=== PATIENT | male | born 1955 | race African-American/Black ===

== ENCOUNTER 2020-03-01 05:39 | Inpatient (IN) | payer OTHER, MEDICAID ==
[~2020-03-01] VITALS: Ht 172.7 cm; Wt 88.7 kg
[2020-03-01] VITALS (7 sets, daily range): BP systolic 113–186; BP diastolic 45–88
--- NOTE | ~2020-03-01 | HEMODYNAMI ---
PATIENT:JEFFREY PERALES MEDICAL RECORD: [id number] : 55 [facility]# [id number] ADMISSION DATE: 03/01/20 Generatedon:03/01/20208:43 Patient name: JEFFREY PERALES Patient #: [id number] SSN: DO B: 1955 Date of study: 03/01/2020 Page: Of Hemodynamic Procedure Report Patient Data Patient Demographics Procedure consent was obtained First Name: JEFFREY Gender: Male Last Name: ANGELLA : 1955 Patient #: [id number] Age: 65 year(s) Race: Black Additional ID: [id number] Contact details Address: [address] [place] [address] [address] State: [place] City: [facility] Zip code: [address] Past Medical History Allergies Allergen Reaction Date Comments Reported Other allergy 03/01/2020 LISINOPRIL Admission Admission Data Admission Date: 03/01/2020 Admission Time: 7:59 Room #: Andrew[facility]15 Lab Results Lab Result Date: 03/01/2020 Lab Result Time: 0:00 Biochemistry Name Units Result Min Max BUN mg/dl 24 --(----)-* 7 18 Creatinine mg/dl 2 --(----)-* 0.6 1.3 eGFR ml/min 36 *-(----)-- 90 120 NONAFRICAN CBC Name Units Result Min Max Hematocrit % 42.9 --(*---)-- 42 54 Hemoglobin g/dl 14.8 --(-*--)-- 13.5 17.5 Procedure Procedure Types Cath Procedure Diagnostic Procedure C [facility] w/Coronaries PCI Procedure Coronary Stent Coronary Stent Initial Hemochron ACT Test Procedure Description Procedure Date Procedure Date: 03/01/2020 Procedure Start Time: 8:14 Procedure End Time: 8:42 Procedure Staff Name Function Beto Vázquez MD Performing Physician Milagro Flores RT Monitor Ailyn Sims RT Scrub Kory Lorigan RN Nurse Procedure Data Cath Procedure Fluoroscopy Diagnostic fluoroscopy Total fluoroscopy Time: 3.5 time: 3.5 min min Diagnostic fluoroscopy Total fluoroscopy dose: 812 dose: 812 mGy mGy Contrast Material Contrast Material Type Amount (ml) Isovue 300 107 Entry Location Entry Primary Successful Side Size Upsize Upsize Entry Closure Succes sful Closure Location (Fr) 1 (Fr) 2 (Fr) Remarks Device Remarks Femoral Right 6 Fr Exoseal artery Short Estimated blood loss: 10 ml Diagnostic catheters Device Type Used For End Catheter Placement MULTIPACK JL 4.0 5Fr Procedure catheter MULTIPACK 3DRC 5Fr Procedure catheter MULTIPACK Pigtail 5 Fr Procedure catheter Procedure Complications No complications Procedure Medications Medication Administration Route Dosage 0.9% NaCl I.V. 100 ml/hr Oxygen NC 2 l/min Heparin Flush Bag added to field 2 bags (1000units/500ml NS) Lidocaine 2% added to field 20 Heparin Bolus I.V. 5000 units Integrilin (Bolus I.V. 7.9 ml 2mg/ml) Integrilin (Bolus wasted 2.1 ml 2mg/ml) Plavix P.O. 600 mg Hemodynamics Rest HGB: 14.8 (g/dl) Heart Rate: 55 (bpm) Pressure Samples Time Site Value (mmHg) Purpose Heart Use Rate(bpm) 8:20 LV 176/16,14 Snapshot 57 8:21 AO 160/72(110) Pullback 53 Gradients Valve Time Site Site 2 Mean SEP/DFP Peak To Heart Use 1 (mmHg) (sec/min) Peak Rate (mmHg) (bpm) Aortic 8:21 LV AO 53 160/72(110) Snapshots Pre Cath Intra NCS Post Cath Vital Signs Time Heart Resp SPO2 etCO2 NIBP (mmHg) Rhythm Pain Sedation Rate (ipm) (%) (mmHg) Status Level (bpm) 8:09:49 66 9 100 0 154/81(124) NSR 0 (11) 10(A) , No pain 8:14:12 48 10 100 0 159/90(129) NSR 0 (11) 10(A) , No pain 8:18:38 61 12 100 0 158/85(130) NSR 0 (11) 10(A) , No pain 8:23:00 52 9 100 0 155/84(130) NSR 0 (11) 10(A) , No pain 8:27:26 54 14 100 0 158/82(140) NSR 0 (11) 10(A) , No pain 8:31:55 58 12 100 0 167/78(133) NSR 0 (11) 10(A) , No pain 8:36:19 57 8 100 0 171/91(119) NSR 0 (11) 10(A) , No pain 8:40:43 55 8 100 0 166/88(124) NSR 0 (11) 10(A) , No pain Medications Time Medication Route Dose Verified Delivered Reason Notes Effectiveness by by 8:10:25 0.9% NaCl I.V. 100 Kory Kory Per physician ml/hr Danilo Carrasco RN RN 8:10:37 Oxygen NC 2 Kory Kory for low 02 sats l/min Danilo Carrasco RN RN 8:10:56 Heparin Flush added 2 Kory Kory used for Bag to bags Danilo Carrasco procedure (1000units/500ml RN RN NS) 8:11:08 Lidocaine 2% added 20ml Kory Kory for local to vial Danilo Carrasco anesthetic RN RN 8:22:52 Heparin Bolus I.V. 5000 Kory Kory for units Danilo Carrasco anticoagulation RN RN 8:23:09 Integrilin I.V. 7.9 Kory Kory for (Bolus 2mg/ml) ml Danilo Carrasco antiplatelet RN RN therapy 8:23:20 Integrilin wasted 2.1 Kory Kory to sharp's (Bolus 2mg/ml) ml Danilo Carrasco RN RN 8:38:26 Plavix P.O. 600 Kory Kory for mg Danilo Carrasco antiplatelet RN RN therapy Procedure Log Time Note 7:51:39 Informed consent obtained and on chart 7:52:26 Procedure Status Urgent Heart Cath (IP). 7:52:27 Time tracking: Regular hours (M-F 7:00 - 5:00) 7:52:30 Plan of Care:Hemodynamics will remain stable., Cardiac rhythm will remain stable., Comfort level will be maintained., Respiratory function will remain adequate., Patient/ family verbilizes understanding of procedure., Procedure tolerated without complication., Recovers from procedure without complications.. 7:52:34 Ailyn LAN(R) (CV) sent for patient. Start room use. 7:52:56 H&P Date Dictated: 03/01/2020 ER History on chart.. 7:58:52 Patient allergic to Other allergyLISINOPRIL 8:00:52 Lab Result : eGFR NONAFRICAN 36 ml/min 8:00:52 Lab Result : Hemoglobin 14.8 g/dl 8:00:52 Lab Result : BUN 24 mg/dl 8:00:52 Lab Result : Creatinine 2 mg/dl 8:00:52 Lab Result : Hematocrit 42.9 % 8:01:44 Patient received from ED to CCL 1 Alert and oriented. Tansferred to table in Supine position. 8:01:45 Warm blankets applied, and wallace hugger turned on for patient comfort. 8:01:45 Correct patient and procedure confirmed by team. 8:08:32 ECG and BP/O2 sat monitors applied to patient. 8:08:33 Baseline sample Acquired. 8:08:33 Vital chart was started 8:08:39 Rhythm: sinus bradycardia 8:08:42 Pre-procedure instructions explained to patient. 8:08:42 Pre-op teaching completed and patient verbalized understanding. 8:08:44 Family unavailable. 8:08:45 Is the patient allergic to Iodine/contrast media? No. 8:08:47 Is patient on blood thinner?No 8:08:49 Patient diabetic? No. 8:08:51 Previous problem with sedation/anesthesia? No ? 8:08:53 Snore? Yes 8:08:58 Sleep apnea? No 8:08:58 Deviated septum? No 8:08:59 Opens mouth fully? Yes 8:08:59 Sticks out tongue? Yes 8:09:01 Airway obstruction? No ? 8:09:02 Dentures? No ? 8:09:05 Pre procedure: right dorsailis pedis pulse 2+ Normal; easily identifiable; not easily obliterated 8:09:52 IV patent on arrival in right antecubital with 0.9% NaCl at O. 8:09:54 Lab results completed and on chart. 8:09:57 Right groin area was prepped with chlora-prep and draped in sterile fashion 8:09:58 Alarms reviewed by RJulia N. 8:09:58 Sharps counted by scrub and verified by R.NJulia 8:10:01 --------ALL STOP TIME OUT------ 8:10:02 Final Timeout: patient, procedure, and site verified with staff and physician. All members of the team are in agreement. 8:10:04 Right groin site verified by team. 8:10:07 Fire Safety Assessment: A--An alcohol-based skin anteseptic being used preoperatively., C--Open oxygen or nitrous oxide is being used., D--An ESU, laser, or fiber-optic light is being used. 8:10:10 Physical assessment completed. ASA score P 2 - A patient with mild systemic disease as per Beto Vázquez MD. 8:10:18 3b) 30-44 Moderately reduced kidney function. 8:10:20 Maximum allowable contrast dose (3.7 X eGFR X 0.75)100 ml. 8:10:22 Sedation plan: IV Moderate Sedation Medication:Versed, Fentanyl 8:10:25 0.9% NaCl 100 ml/hr I.V. was administered by Kory Carrasco RN; Per physician; Verbal order read back and verified. 8:10:37 Oxygen 2 l/min NC was administered by Kory Carrasco RN; for low 02 sats; Verbal order read back and verified. 8:10:56 Heparin Flush Bag (1000units/500ml NS) 2 bags added to field was administered by Kory Carrasco RN; used for procedure; Verbal order read back and verified. 8:11:00 Use device set Femoral Dx 8:11:01 ACIST Syringe (81887) opened to sterile field. 8:11:01 Bag Decanter (2001S) opened to sterile field. 8:11:02 ACIST Hand Control (68196) opened to sterile field. 8:11:03 ACIST Manifold (31945) opened to sterile field. 8:11:04 Tegaderm 4 x 4 (1626W) opened to sterile field. 8:11:07 Medline Cath Pack ([id number]) opened to sterile field. 8:11:08 Lidocaine 2% 20ml vial added to field was administered by Kory Carrasco RN; for local anesthetic; Verbal order read back and verified. 8:11:08 DIAGNOSTIC Multipack 5Fr catheter set (DI9135) opened to sterile field. 8:11:10 EMERALD Guide Wire (684-523) opened to sterile field. 8:11:15 SHEATH 6FR [place] (GAA240) opened to sterile field. 8:14:23 Procedure started. 8:14:23 Full Disclosure recording started 8:14:33 Local anesthetic to right femoral artery with Lidocaine 2% by Beto Vázquez MD.INITIAL ACCESS ONLY 8:15:36 A 6 Fr Short sheath was inserted into the Right Femoral artery 8:15:39 Zero performed for pressure channel P1 8:16:08 A MULTIPACK JL 4.0 5Fr catheter was advanced over the wire and used for Procedure. 8:17:59 LCA angiography performed. 8:18:00 Catheter removed. 8:18:05 A MULTIPACK 3DRC 5Fr catheter was advanced over the wire and used for Procedure. 8:18:58 RCA angiography performed. 8:19:00 Catheter removed. 8:19:02 ACCDominant side:Right 8:19:44 A MULTIPACK Pigtail 5 Fr catheter was advanced over the wire and used for Procedure. 8:20:06 LV gram done using NATHAN 8:20:09 Injector settings: Ml/sec: 10, Volume: 20, 8:20:43 LV hemodynamics recorded. 8:20:56 EF : 55 % 8:20:59 Proceeding to intervention. 8:21:53 Pre PCI Site: [place] LAD has 80% stenosis. 8:22:04 GUIDE 6FR XBLAD 3.5 catheter ([id number]) opened to sterile field. 8:22:08 WHISPER 300cm guide wire ([id number]) opened to sterile field. 8:22:13 INFLATOR Merit BasixCompak (ZU0078) opened to sterile field. 8:22:26 6 Fr XBLAD 3.5 guide catheter was inserted over the wire 8:22:52 Heparin Bolus 5000 units I.V. was administered by Kory Carrasco RN; for anticoagulation; Verbal order read back and verified. 8:22:55 ACC Pre-intervention JAKE Flow is 3. 8:23:09 Integrilin (Bolus 2mg/ml) 7.9 ml I.V. was administered by Kory Carrasco RN; for antiplatelet therapy; Verbal order read back and verified. 8:23:20 Integrilin (Bolus 2mg/ml) 2.1 ml wasted was administered by Kory Carrasco RN; to sharp's; Verbal order read back and verified. 8:23:35 WHISPER 300 wire advanced. 8:24:52 Wire advanced across lesion. 8:28:02 Place stent Inflation Number: 1 A INTEGRITY RX 3.0 x 15 stent ([id number]) was prepped and advanced across the Mid LAD . The stent was deployed at 12 KERRY for 0:00 (min:sec) . 8:28:41 Inflation number: 2 The stent balloon was then re-inflated across the Mid LAD to 10 KERRY for 0:00 (min:sec) . 8:29:18 Stent catheter was removed intact over wire. 8:32:13 Place stent Inflation Number: 3 A INTEGRITY RX 3.0 x 09 stent ([id number]) was prepped and advanced across the Mid LAD . The stent was deployed at 12 KERRY for 0:00 (min:sec) . 8:32:39 Stent catheter was removed intact over wire. 8:32:49 Wire removed. 8:32:49 Guide catheter removed. 8:32:59 EXOSEAL 6Fr (EX600) opened to sterile field. 8:33:22 Sheath removed intact; hemostasis achieved with Exoseal to the Right Femoral artery. 8:33:30 Procedure ended.(Physican Out) 8:37:46 Fluoroscopy time 03.50 minutes. 8:37:51 Flurop Dose total: 812 8:37:51 Fluoroscopy dose: 812 mGy 8:37:58 Dose Area Product 46386 mGy/cm. 8:38:08 Contrast amount:Isovue 300 107ml. 8:38:11 Maximum allowable dose exceeded? Yes. 8:38:12 Sharps counted by scrub and verified by R.N. 8:38:15 Post-op/insertion site Right Femoral artery dressed using a 4 x 4 and Tegaderm. 8:38:18 Post-procedure physical assessment completed. ASA score P 2 - A patient with mild systemic disease as per Beto Vázquez MD. 8:38:21 Post procedure rhythm: sinus bradycardia 8:38:23 Estimated blood loss: 10 ml 8:38:26 Plavix 600 mg P.O. was administered by Kory Carrasco RN; for antiplatelet therapy; Verbal order read back and verified. 8:38:47 Post procedure instruction explained to patient.Patient verbalizes understanding. 8:38:48 ACT drawn and resulted at 275 seconds. (normal therapeutic range 180-240 seconds). 8:38:48 Patient needs reinforcement of post procedure teaching. 8:41:06 Procedure type changed to Cath procedure, Diagnostic procedure, LHC, LHC w/Coronaries, PCI procedure, Coronary Stent, Coronary Stent Initial, Hemochron ACT Test 8:41:36 Procedure and supply charges have been captured, reviewed, submitted and are correct. 8:41:40 Procedure Complication : No complications 8:41:44 [facility] Findings: MVD- PCI performed (see procedure note) 8:41:47 Operative report dictated upon procedure completion. 8:41:49 See physician's report for complete and final results. 8:41:51 Report given to ED. 8:41:53 Patient transfered to ED with Bed. 8:42:41 Vital chart was stopped 8:42:44 Procedure ended. 8:42:44 Full Disclosure recording stopped 8:42:50 ACC-PCI Only Patient was given prescriptions, or instructed by Beto Vázquez MD to start/continue the following medications upon discharge: Plavix 8:42:51 End room use (Document Last) 8:43:12 End room use (Document Last) Intervention Summary Intervention Notes Time ActionType Lesion and Equipment Action# Pressure Duration Attributes Used 8:28:02 Place stent Mid LAD INTEGRITY RX 1 12 00:00 3.0 x 15 stent ([id number]) 8:28:41 Reinflate Mid LAD INTEGRITY RX 2 10 00:00 stent 3.0 x 15 balloon stent ([id number]) 8:32:13 Place stent Mid LAD INTEGRITY RX 3 12 00:00 3.0 x 09 stent ([id number]) Device Usage Item Name Manufacture Quantity Catalog Hospital Part Current Minimal Lot# / Number Charge Number Stock Stock Serial# Code ACIST Acist 1 97945 473933 636013 507614 20 Syringe Medical (34849) Systems Inc Bag Decanter Microtek 1 2001S 780295 91554 450190 5 () Medical Inc. ACIST Hand Acist 1 88092 531104 048649 508040 5 Control Medical (54280) Systems Inc ACIST Acist 1 80583 449399 737435 664380 5 Manifold Medical (94161) Systems Inc Tegaderm 4 x 3M 1 1626W 524302 568375 851090 5 4 (1626W) Medline Cath Medline 1 [id number] 933827 76947 338141 5 Pack ([id number]) DIAGNOSTIC Cardinal 1 GO5598 101168 34380 167779 30 Multipack Health 5Fr catheter set (IT1271) EMERALD Cardinal 1 502-455 882599 844245 486214 5 Guide Wire Health (502-455) SHEATH 6FR Terumo 1 DPH752 890894 569931 341059 40 [place] (MBK538) MULTIPACK JL Cardinal 1 241187 5 4.0 5Fr Health catheter MULTIPACK Cardinal 1 297042 5 3DRC 5Fr Health catheter MULTIPACK Cardinal 1 011625 5 Pigtail 5 Fr Health catheter GUIDE 6FR Cardinal 1 [id number] 857233 005925 108843 10 XBLAD 3.5 Health catheter ([id number]) WHISPER Jeong 1 [id number] 214158 461725 387495 5 300cm guide Vascular wire (4260895GZ) INFLATOR Merit 1 JC3490 614313 443858 275789 15 Merit Health [place] Medical BasixCompak (NL6704) INTEGRITY RX Medtronic 1 [id number] 970076 641310 201448 5 [id number] 3.0 x 15 stent ([id number]) INTEGRITY RX Medtronic 1 [id number] 962163 497674 777082 5 [id number] 3.0 x 09 stent ([id number]) EXOSEAL 6Fr Cardinal 1 EX600 612452 865986 735447 10 (EX600) Health Signature Audit [place] Stage Time Signature Unsigned Intra-Procedure 03/01/2020 Kory 8:43:12 AM Danilo CANTRELL Intra-Procedure 03/01/2020 eBto Francois 8:43:35 AM Gregory [facility] [address] [place] [address]
[2020-03-01] MEDS ORDERED: GABAPENTIN300 MG PO (05:51)
[2020-03-01] MEDS ORDERED: FUROSEMIDE40 MG PO (05:51)
[2020-03-01] MEDS ORDERED: METHOCARBAMOL750 MG PO (05:51)
[2020-03-01] MEDS ORDERED: IBUPROFEN800 MG PO (05:52)
[2020-03-01] MEDS ORDERED: LOSARTAN-HCTZ1 EAC1 PO (05:52)
[2020-03-01] MEDS ORDERED: K-TAB10 MEQ PO (05:53)
[2020-03-01] MEDS ORDERED: MOBIC7.5 MG PO (05:53)
[2020-03-01] MEDS ORDERED: CATAPRES0.2 MG PO (05:53)
[2020-03-01 06:27] LABS: APTT 29.6 SECONDS (22.8-39.4); INR 0.91 (0.85-1.17); PROTIME 12.2 SECONDS (11.6-15.0)
[2020-03-01 06:35] LABS: BASOPHILS 0.1 % (0-2); CALC OSMOLALITY 281 mosm/kg (275-300); CALCIUM 9.3 mg/dL (8.5-10.1); CARBON DIOXIDE 26.6 mmol/L (21.0-32.0); CHLORIDE - SERUM 104 mmol/L (98-107); EOSINOPHILS 1.1 % (0-7); GLUCOSE 142 mg/dL (74-106); HEMATOCRIT 42.9 % (42.0-54.0); HEMOGLOBIN 14.8 g/dL (13.5-17.5); IMMATURE GRANULOCYTES 0.2 % (0-5); LYMPHOCYTES 17.4 % (15-50); MCH 33.7 pg (26.0-34.0); MCHC 34.5 g/dL (31.0-37.0); MCV 97.7 fL (80.0-100.0); MEAN PLATELET VOLUME 10.4 fL (7.4-10.4); MONOCYTES 4.7 % (2-11); NEUTROPHILS 76.5 % (40-80); PLATELET COUNT 272 10x3/uL (130-400); POTASSIUM - SERUM 3.6 mmol/L (3.5-5.1); RBC 4.39 10x6/uL (4.20-6.10); RDW 13.5 % (11.5-14.5); SODIUM 138 mmol/L (136-145); UREA NITROGEN 24 mg/dL (7-18); WBC 14.6 10x3/uL (4.8-10.8); eGFR NON AFRICAN AMERICAN 36 mL/min (90-120)
[2020-03-01 06:51] LABS: ALBUMIN 3.2 g/dL (3.4-5.0); ALKALINE PHOSPHATASE 51 U/L (30-120); ALT (SGPT) 17 U/L (10-68); BILIRUBIN - TOTAL 0.21 mg/dL (0.2-1.3); CKMB 2.3 U/L (0.0-3.6); CREATINE KINASE 236 UL (21-232); MAGNESIUM - SERUM 2.2 mg/dL (1.8-2.4); PROTEIN - SERUM 6.7 g/dL (6.4-8.2); THYROID STIMULATING HORMONE 0.65 uIU/mL (0.36-3.74); TROPONIN-I < 0.017 ng/mL (0.000-0.060)
--- NOTE | 2020-03-01 07:00 | NUR ---
PT REPORT FROM TAMIA LOO. PT CARE TAKEN OVER AT THIS TIME
--- NOTE | 2020-03-01 07:04 | NUR ---
CALLED FOR [facility] TO BE PAGED
--- NOTE | 2020-03-01 07:10 | NUR ---
PT'S CLOTHES REMOVED FOR CATHLAB PREP, IV STARTED TO RIGHT F/A 18 GA X 1 ATTEMPT
--- NOTE | 2020-03-01 07:20 | NUR ---
CATHLAB AND BLOOD CONSENTS SIGNED
--- NOTE | 2020-03-01 08:00 | NUR ---
PT TAKEN TO [facility]
--- NOTE | 2020-03-01 08:13 | NUR ---
STROKE BAND NUMBER [id number]
--- NOTE | 2020-03-01 09:00 | NUR ---
PT VERY LETHARGIC, WILL AWAKE TO MODERATE STIMULATION. VSS
--- NOTE | 2020-03-01 09:00 | NUR ---
PT BACK FROM CATHLAB, PULSES NOTED 2+ ON LEFT FOOT, DRESCREASED ON RIGHT, WEAK DOPPLER PULSES NOTED DP, PT. DR. OSORIO
--- NOTE | 2020-03-01 09:29 | NUR ---
DR. PINON NOTIFED ABOUT PULSE TO RIGHT FOOT, ADVISED TO MONITOR AND LONG THE PULSE WAS PRESENT ON DOPPLER AND THE SITE WAS GOOD THEN JUST MONITOR
--- NOTE | 2020-03-01 10:30 | NUR ---
DR. FLORES HERE TO SEE PT
--- NOTE | 2020-03-01 11:20 | NUR ---
DR PINON HERE AT BEDSIDE
[2020-03-01 11:31] LABS: CHOL - HDL RATIO 2.9 ratio (2.3-4.9); LDL-HDL RATIO 1.6 ratio (1.5-3.5)
[2020-03-01 17:41] LABS: CREATINE KINASE 181 UL (21-232); TROPONIN-I 0.054 ng/mL (0.000-0.060)
[2020-03-01 17:43] LABS: CKMB 1.5 U/L (0.0-3.6)
[2020-03-02] VITALS (11 sets, daily range): BP systolic 111–160; BP diastolic 38–83; BMI 28.9
[2020-03-02 00:11] LABS: CKMB 1.8 U/L (0.0-3.6); CREATINE KINASE 143 UL (21-232)
[2020-03-02 00:42] LABS: TROPONIN-I 0.319 ng/mL (0.000-0.060)
--- NOTE | 2020-03-02 01:00 | NUR ---
DR PINON INFORMED OF PT TROP. NO NEW ORDERS.
--- NOTE | 2020-03-02 06:00 | NUR ---
PT DENIES COMPLAINTS. PT RESTING IN STRECHER WATCHING TV. WILL CONT TO MONITOR
--- NOTE | 2020-03-02 07:08 | NUR ---
PT CARE ASSUMED AT THIS TIME, PT IS RESTING QUIETLY IN BED, RESPIRATIONS EVEN AND UNLABORED, BILATERAL RISE AND FALL OF CHEST NOTED, VSS ON THE MONITOR, CALL LIGHT IS IN REACH OF PATIENT,
[2020-03-02 08:31] LABS: BASOPHILS 0.1 % (0-2); EOSINOPHILS 0.3 % (0-7); HEMATOCRIT 44.5 % (42.0-54.0); HEMOGLOBIN 15.2 g/dL (13.5-17.5); IMMATURE GRANULOCYTES 0.3 % (0-5); LYMPHOCYTES 19.9 % (15-50); MCH 33.9 pg (26.0-34.0); MCHC 34.2 g/dL (31.0-37.0); MCV 99.1 fL (80.0-100.0); MEAN PLATELET VOLUME 10.2 fL (7.4-10.4); MONOCYTES 5.7 % (2-11); NEUTROPHILS 73.7 % (40-80); PLATELET COUNT 229 10x3/uL (130-400); RBC 4.49 10x6/uL (4.20-6.10); RDW 13.6 % (11.5-14.5)
[2020-03-02 08:48] LABS: ANION GAP 10.2 mmol/L (8-16); BILIRUBIN - TOTAL 0.49 mg/dL (0.2-1.3); CALCIUM 8.5 mg/dL (8.5-10.1); CARBON DIOXIDE 24.6 mmol/L (21.0-32.0); CREATININE - SERUM 1.4 mg/dL (0.6-1.3); POTASSIUM - SERUM 3.8 mmol/L (3.5-5.1); PROTEIN - SERUM 6.8 g/dL (6.4-8.2)
--- NOTE | 2020-03-02 09:00 | NUR ---
SPEECH THERAPY IN ROOM AT THIS TIME, PT OK FOR MEDS AND FOOD, NEEDS MECHANICAL SOFT DIET DUE TO NOT HAVING DENTURES IN THE HOSPITAL. TRAY ORDERED FOR PATIENT. DENIES OTHER NEEDS, VSS.
--- NOTE | 2020-03-02 11:00 | NUR ---
PT RESTING ON ER STRETCHER WITH EYES CLOSED, RESPIRATIONS EVEN AND UNLABORED, BILATERAL RISE AND FALL OF CHEST NOTED, BED LOW AND LOCKED, CALL LIGHT WITHIN REACH, VSS ON THE MONITOR.
--- NOTE | 2020-03-02 12:00 | NUR ---
PT PROVIDED WITH LUNCH TRAY, DENIES OTHER NEEDS AT THIS TIME, VSS ON THE MONITOR, BED LOW AND LOCKED, CALL LIGHT IN REACH.
--- NOTE | 2020-03-02 13:30 | NUR ---
PT RESTING ON ER STRETCHER, AWAKENS TO VOICE, DENIES NEEDS AT THIS TIME, NAD NOTED.
--- NOTE | 2020-03-02 15:00 | NUR ---
PT IS RESTING ON ER STRETCHER, S/O AT BEDSIDE, NAD NOTED, VSS, CALL LIGHT IN REACH.
--- NOTE | 2020-03-02 16:55 | NUR ---
PT NOTED TO BE BRADYCARDIC, ATTENDING PROVIDER NOTIFIED.
[2020-03-02 17:38] LABS: BILIRUBIN NEGATIVE (NEGATIVE); KETONE NEGATIVE (NEGATIVE); NITRITE NEGATIVE (NEGATIVE); UROBILINOGEN NORMAL mg/dL (< 2)
[2020-03-02 17:47] LABS: UDS - AMPHET NEGATIVE QUAL (NEGATIVE); UDS - BARB NEGATIVE QUAL (NEGATIVE); UDS - BENZO NEGATIVE QUAL (NEGATIVE); UDS - COCAINE POSITIVE QUAL (NEGATIVE); UDS - OPIATE POSITIVE QUAL (NEGATIVE); UDS - PCP NEGATIVE QUAL (NEGATIVE); UDS - THC NEGATIVE QUAL (NEGATIVE)
[2020-03-03] VITALS (7 sets, daily range): BP systolic 107–134; BP diastolic 55–71; Ht 172.7 cm; Wt 88.7 kg
[2020-03-03 06:46] LABS: BASOPHILS 0.2 % (0-2); EOSINOPHILS 0.6 % (0-7); HEMATOCRIT 39.7 % (42.0-54.0); HEMOGLOBIN 13.4 g/dL (13.5-17.5); IMMATURE GRANULOCYTES 0.2 % (0-5); LYMPHOCYTES 16.5 % (15-50); MCH 33.3 pg (26.0-34.0); MCHC 33.8 g/dL (31.0-37.0); MCV 98.5 fL (80.0-100.0); MEAN PLATELET VOLUME 10.5 fL (7.4-10.4); MONOCYTES 6.9 % (2-11); NEUTROPHILS 75.6 % (40-80); PLATELET COUNT 245 10x3/uL (130-400); RBC 4.03 10x6/uL (4.20-6.10); RDW 13.4 % (11.5-14.5); WBC 12.8 10x3/uL (4.8-10.8)
[2020-03-03 07:07] LABS: ALBUMIN 2.7 g/dL (3.4-5.0); ANION GAP 10.6 mmol/L (8-16); BILIRUBIN - TOTAL 0.28 mg/dL (0.2-1.3); CALCIUM 8.6 mg/dL (8.5-10.1); CREATININE - SERUM 1.3 mg/dL (0.6-1.3); POTASSIUM - SERUM 3.6 mmol/L (3.5-5.1); PROTEIN - SERUM 6.1 g/dL (6.4-8.2)
--- NOTE | 2020-03-03 08:59 | OP ---
PATIENT NAME: JEFFREY PERALES MEDICAL RECORD: [id number] :55 LOCATION:[facility] ADMISSION DATE:03/01/20 SURGEON: YULIANA PINON MD DATE OF OPERATION: 03/01/2020 PROCEDURE: Left heart catheterization, selective coronary angiography, right femoral artery approach. CATHETERS: A 5-Azerbaijani sheath, 5/4 left and right Joy, 5/4 pig. The procedure was well tolerated. The patient returned to the malik. Sheath removed. ExoSeal device placed. FINDINGS: Left ventriculography in 30-degree NATHAN view: Normal wall motion, normal EF 30%. CORONARY ANATOMY: LEFT MAIN: Left main is free of disease. LAD: Has an 80% stenosis, correlating nicely with EKG changes, it is quite hazy. Questionable area of either spontaneous thrombosis or vasospasm with underlying cocaine use. CIRCUMFLEX: Small vessel, free of disease. RIGHT CORONARY ARTERY: Dominant and free of disease. IMPRESSION: Obviously infarct artery LAD. PLAN: Intervention momentarily. DESCRIPTION OF PROCEDURE: Using indwelling 6-Azerbaijani sheath, XB LAD guiding catheter provided good catheter support followed by a 300 cm Whisper wire was placed across the 80% stenosis LAD down this portion of vessel. Stents deployed were a 3.0 x 15 and 3.0 x 9, both Integrity nondrug-eluting stent up to 14 atmospheres. Final angiography shows excellent resolution of 80% stenosis, no significant residual. JAKE flow was 3 throughout the procedure. Sheath was closed with ExoSeal device. The patient started on Plavix on lab. Received calcium channel atiya in the ER. We will hold beta atiya in face of underlying cocaine use and unopposed alpha constriction; hopefully, we will at least continue Plavix for a month, although she is concerned for compliance in the future. TRANSINT:[id number] Voice Confirmation ID: [id number] DOCUMENT ID: [id number] YULIANA PINON MD at 0859 CC: [id number] DICTATION DATE: 03/01/20 0852 STENCIL INSPECTOR: 03/01/20 1723 ADM IN [facility] [id number] [place] [address]
--- NOTE | 2020-03-03 08:59 | EC ---
PATIENT:JEFFREY PERALES DATE OF SERVICE: 03/01/20 SEX: M MEDICAL RECORD: [id number] DATE OF : 55 LOCATION:[facility] AGE OF PATIENT: 65 ADMISSION DATE: 03/01/20 REFERRING PHYSICIAN: INTERPRETING PHYSICIAN: YULIANA PINON MD ECHOCARDIOGRAM REPORT ECHO CHARGES 4 ECHO COMPLETE Date: 03/01/20 CLINICAL DIAGNOSIS: CVA/TIA ASSESS FOR CLOTS/EF POST STENTS ECHOCARDIOGRAPHIC MEASUREMENTS (adult normal given) AC root (d.<3.7cm) 3.3 cm LV Septum d (<1.2 cm> 1.5 cm Valve Excursion 1.6 cm LV Septum (systole) 2.0 cm Left Atria (s.<4.0cm> 3.7 cm LVPW d(<1.2cm) 1.8 cm RV (d.<2.3cm) 3.4 cm LVPW (sytole) 1.9 cm LV diastole(<5.6CM) 5.7 cm MV E-F(>70mm/sec) cm LV systole 3.9 cm LVOT Diameter 1.7 cm MV exc.(>10mm) 1.9 cm Est.ejection fraction (50-75%) % DOPPLER: LVIT cm/sec A 110.0cm/sec E 61.0 cm/sec LA cm/sec RVSP 21 mmHg LVOT 115 cm/sec AOP1/2T 835 m/s Asc. Ao 159 cm/sec RVOT cm/sec RA cm/sec PA cm/sec AV Gradient Peak 10.06mmHg AV Mean 5.63 mmHg AV Area 1.8 cm MV Gradient Peak 4.95 mmHg MV Mean 5.63 mmHg MV Area cm COMMENTS: Frame Table Operator Helper: Pranav CARTER Lacquer Polisher: 2 Dr. Finney TAPE# PACS Pericardial Effusion N DATE OF SERVICE: Adequate 2D, color flow imaging, spectral Doppler and M-mode. LVH is present. LV internal dimension is normal. Wall motion is normal. EF is greater than or equal to 55%. Aortic valve is tricuspid. No evidence of stenosis by Doppler interrogation. Mild to moderate AI on color flow imaging. Left atrium is normal at 3.7 cm. Mitral valve shows no prolapse. Mild MR. Right-sided chambers are grossly normal. Trace TR. ECHOCARDIOGRAM REPORT [id number] JEFFREY PERALES TRANSINT:[id number] Voice Confirmation ID: [id number] DOCUMENT ID: [id number] YULIANA PINON MD at 0859 CC: [id number] DICTATION DATE: 03/02/20 1225 MEDICAL SERVICES ASSISTANT: 03/02/20 2241 ADM IN [facility] [address] [place] [address]
--- NOTE | 2020-03-03 08:59 | HP ---
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 During a workup, he began having left arm and chest pain, he was found to have ST elevation anteriorly. Did do cocaine prior to admission here. He is being brought to the rn labor delivery on an urgent basis. PAST MEDICAL HISTORY: Includes: 1. History of hypertension. 2. Questionable chronic renal insufficiency. MEDICATIONS: Include Lasix 40 mg p.o. every day, Neurontin 300 t.i.d., losartan 100/25 every day, ibuprofen 800 mg t.i.d. p.r.n., clonidine 0.2 b.i.d. SOCIAL HISTORY: Smokes about a pack a day. Uses marijuana and cocaine. Does drink beer No exercise program. REVIEW OF SYSTEMS: The patient reports easy bruising but reports no swollen glands. The patient reports no fever, no night sweats, no significant weight gain, no significant weight loss. No significant exercise tolerance. The patient reports no dry eyes, no irritation, no vision change. Patient reports no difficulty hearing and no ear pain. Patient reports no frequent nose bleeds or nose and sinus problems. Patient reports on arm pain on exertion. No shortness of breath while lying down. No history of heart murmur. Patient reports no cough, no wheezing or coughing up blood. Patient reports no abdominal pain, no vomiting. Normal appetite. No diarrhea and not vomiting blood. No nausea and no constipation. Patient reports no incontinence. No difficulty urinating. No hematuria. No increased frequency. Patient reports no muscle aches. No weakness, no arthralgias, no back pain. No swelling of the extremities. Patient reports no abnormal mole, no jaundice, no rashes. Reports no loss of consciousness. No weakness and no numbness. No seizures, dizziness, or headaches. The patient reports no depression, no sleep disturbance, feeling safe in a relationship and no alcohol abuse. Patient reports on fatigue. Reports no runny nose or sinus pressure. No itching, no hives, and no frequent sneezing. PHYSICAL EXAMINATION: GENERAL: Mild Mildly uncomfortable, in no acute distress. VITAL SIGNS: Blood pressure 186/80, pulse 46 and regular. HEENT: Normocephalic, atraumatic. NECK: No bruits noted. HEART: Regular, S4 gallop is noted. LUNGS: Good air excursion. ABDOMEN: Soft, nontender. EXTREMITIES: Pulse 2+. No edema. IMPRESSION: Right hemispheric infarct clinically looks reasonably well at this point. PLAN: We will plan on urgent angiography, intervention based on above. HISTORY AND PHYSICAL [id number] JEFFREY PERALES TRANSINT:[id number] Voice Confirmation ID: [id number] DOCUMENT ID: [id number] YULIANA PINON MD at 0859 CC: [id number] DICTATION DATE: 03/01/20 0849 OUTSOLES CHANNEL OPENER: 03/01/20 1653 ADM IN [facility] [address] [place] [address]
--- NOTE | 2020-03-03 15:22 | NUR ---
Rehab Note- Acute Inpatient REhab prescreen orde received. THe patient has [employer] insurance and will require a PreAuth. He has a pending OT Eval from 03/01 at this time. Will need for PreAuth process. Will follow at this time. THank you for this referral! Carley Dominguez RN Clinical Liaison, [facility] Rehab
--- NOTE | 2020-03-03 19:30 | NUR ---
a70 X 4. REPORTS SHARP INTERMITTENT HEADACHE TOWARDS BACK LEFT SIDE OF HEAD. LEFT EYE DOES NOT OPEN WIDE RIGHT EYE. PT REPORTS PRN PAIN MEDICATION AND DEEP BREATHING EASE HEADACHE SOME. 2L O2 APPLIED. TELEMETRY APPLIED. 57 SINUS CHRIS. CTM.
--- NOTE | 2020-03-03 23:55 | NUR ---
RECEIVED CALL FROM RETAIL GROCER. PTs HEARTRATE HAS BEEN DROPPING INTO THE 30s FOR BRIEF MOMENTS, THEN BACK UP. USUALLY HAS BEEN STAYING SINUS CHRIS IN THE 40s, OCCASIONALLY RISES TO LOW 50s. OTHER VITALS CURRENTLY STABLE AND DOCUMENTED.
[2020-03-03] MEDS ORDERED: GABAPENTIN300 MG PO (23:56)
[2020-03-03] MEDS ORDERED: METHOCARBAMOL750 MG PO (23:57)
[2020-03-03] MEDS ORDERED: HYDROCODON-ACE1 EA10 PO (23:57)
[2020-03-03] MEDS ORDERED: AMBIEN10 MG PO (23:58)
[2020-03-03] MEDS ORDERED: CATAPRES0.2 MG PO (23:58)
[2020-03-03] MEDS ORDERED: COZAAR25 MG (23:58)
[2020-03-03] MEDS ORDERED: POTASSIUM CHLO20 MEQ (23:59)
[2020-03-03] MEDS ORDERED: FUROSEMIDE40 MG PO (23:59)
[2020-03-04] VITALS: BP 132/63
[2020-03-04] MEDS ORDERED: MOBIC7.5 MG PO
[2020-03-04 04:00] VITALS: BP 129/55
[2020-03-04 06:48] LABS: BASOPHILS 0.1 % (0-2); EOSINOPHILS 0.7 % (0-7); HEMATOCRIT 39.9 % (42.0-54.0); HEMOGLOBIN 13.5 g/dL (13.5-17.5); IMMATURE GRANULOCYTES 0.2 % (0-5); LYMPHOCYTES 17.4 % (15-50); MCH 33.3 pg (26.0-34.0); MCHC 33.8 g/dL (31.0-37.0); MCV 98.5 fL (80.0-100.0); MEAN PLATELET VOLUME 10.9 fL (7.4-10.4); NEUTROPHILS 74.6 % (40-80); PLATELET COUNT 237 10x3/uL (130-400); RBC 4.05 10x6/uL (4.20-6.10); RDW 13.3 % (11.5-14.5); WBC 11.3 10x3/uL (4.8-10.8)
[2020-03-04 07:03] LABS: ALBUMIN 2.9 g/dL (3.4-5.0); BILIRUBIN - TOTAL 0.36 mg/dL (0.2-1.3); CALCIUM 8.7 mg/dL (8.5-10.1); CARBON DIOXIDE 26.5 mmol/L (21.0-32.0); CREATININE - SERUM 1.3 mg/dL (0.6-1.3); MAGNESIUM - SERUM 2.1 mg/dL (1.8-2.4); POTASSIUM - SERUM 3.5 mmol/L (3.5-5.1); PROTEIN - SERUM 6.4 g/dL (6.4-8.2)
[2020-03-04 08:02] VITALS: BP 126/82
--- NOTE | 2020-03-04 08:27 | NUR ---
RESTING IN BED, NO DISTRESS NOTD, IV INFUSING, CONT TO MONITOR HR AND BP
[2020-03-04 12:02] VITALS: BP 135/57
[2020-03-04 14:30] VITALS: BP 136/67
--- NOTE | 2020-03-04 14:50 | NUR ---
OT NOTE: PT DOING WELL; ABLE TO PERFORM GROOMING AND FEEDING WITH SET UP; MIN ASSIST WITH DRESSING. PT WITH C/O PAIN IN SPECIFIC LOCATION OF HEAD.. ALSO REPORTS THAT THE LEFT SIDE OF HIS FACE FEELS "TIGHT" AND THAT HIS L EYE FEELS SWOLLEN. SLIGHT DROOPING OF EYE NOTED TODAY THAT I DID NOT NOTICE YESTERDAY WHEN CHECKING VISUAL FIELD. PT STILL SLIGHTLY SLOW AND UNSTEADY WITH GAIT WITH USE OF WALKER. ABLE TO AMB IN ROOM ADN APPROX 50 FT INTO HALLWAY. REPORTED INCREASED FATIGUE UPON RETURN TO ROOM. ABBY CARVER, OTR/L
--- NOTE | 2020-03-04 15:22 | NUR ---
Rehab Note- Per MD progress note proceeded with PreAuth process. Was unable to contact Jessica/Jon via phone due to being disconnected 5x, therefore filled out PreAuth form and faxed along with clinicals at this time to [phone] for review for possible inpatient acute rehas stay prior to being discharged home. Will continue to await determination at this time. THank you for this referral! Carley Dominguez RN Clinical Liaison, [facility] Rehab
[2020-03-04 22:21] VITALS: BP 151/66
--- NOTE | 2020-03-05 02:31 | NUR ---
I have reviewed this patient and I concur with the Shift Assessment completed by the Licensed Practical Nurse today this shift.
[2020-03-05 04:00] VITALS: BP 147/54
[2020-03-05 06:10] LABS: BASOPHILS 0.1 % (0-2); EOSINOPHILS 1.1 % (0-7); HEMATOCRIT 37.8 % (42.0-54.0); HEMOGLOBIN 12.9 g/dL (13.5-17.5); IMMATURE GRANULOCYTES 0.1 % (0-5); LYMPHOCYTES 23.7 % (15-50); MCH 33.3 pg (26.0-34.0); MCHC 34.1 g/dL (31.0-37.0); MCV 97.7 fL (80.0-100.0); MEAN PLATELET VOLUME 10.5 fL (7.4-10.4); MONOCYTES 7.3 % (2-11); NEUTROPHILS 67.7 % (40-80); PLATELET COUNT 224 10x3/uL (130-400); RBC 3.87 10x6/uL (4.20-6.10); RDW 13.2 % (11.5-14.5); WBC 9.7 10x3/uL (4.8-10.8)
[2020-03-05 06:28] LABS: ALBUMIN 2.9 g/dL (3.4-5.0); ANION GAP 9.5 mmol/L (8-16); BILIRUBIN - TOTAL 0.32 mg/dL (0.2-1.3); CALCIUM 8.7 mg/dL (8.5-10.1); CARBON DIOXIDE 28.5 mmol/L (21.0-32.0); CREATININE - SERUM 1.5 mg/dL (0.6-1.3)
--- NOTE | 2020-03-05 07:17 | NUR ---
UP AND IN SHOWER,WITHOUT DISTRESS.
[2020-03-05 08:00] VITALS: BP 142/54
--- NOTE | 2020-03-05 09:22 | NUR ---
PATIENT C/O PAIN IN LEFT SIDE OF NECK THAT RADIATES TO HEAD AND RELIEVED WHEN PT RAISES RT ARM TO HEAD. PT ALSO STATED HE IS COUGHING UP BLOOD IN SPUTUM. WILL DO EKG AND RELAY MESSAGE TO BENZENE WASHER OPERATOR
[2020-03-05 11:56] VITALS: BP 142/66
--- NOTE | 2020-03-05 14:21 | NUR ---
OT NOTE: PT CONT TO REPORT PAIN AND PRESSURE IN L SIDE OF FACE; L EYE REMAINS SOMEWHAT DROOPY. SIMPLE GROOMING , TOILETING, AND FEEDING WITH SETUP; IN ROOM AMBULATION WITH SBA; AMB INTO HALLWAY WITH CGA X 40 FT; CONT WITH MILD BALANCE DEFECITS ABBY CARVER, OTR/L [id number]
--- NOTE | 2020-03-05 14:50 | MORECARE ---
CASE MANAGEMENT DISCHARGE SUMMARY PATIENT: JEFFREY PERALES UNIT: [id number] ADM DATE: 03/01/20 AGE: 65 : 55 SEX: M ROOM/BED: D.2227 AUTHOR: EVERARDODOC PHYSICIAN: REFERRING PHYSICIAN: SIENNA ROBERT MD DATE OF SERVICE: 03/05/20 Discharge Plan Patient Name: JEFFREY PERALES Facility: [facility]:[place] : 1955 Planned Disposition: Inpatient Rehab Anticipated Discharge Date: Discharge Date: Expected LOS: Initial Reviewer: [email or web address] Initial Review Date: 03/01/2020 Generated: 03/05/20 3:50 pm Comments DCP- Discharge Planning Updated by [id number]: Starla Ocampo on 03/05/20 1:[address] Patient Name: JEFFREY PERALES Admission Status: ER Accout number: [id number] Admission Date: 03-01-2020 : 1955 Admission Diagnosis:NON-ST ELEVATION (NSTEMI) MYOCARDIAL INFARCTION Attending: SIENNA ROBERT Current LOS: 4 Anticipated DC Date: Planned Disposition: Inpatient Rehab [facility] Discharge Planning Comments: CM met with patient at bedside after explaining CM role and obtaining verbal consent. CM discussed availability / needs of home health, REHAB and medical equipment. PATIENT WOULD LIKE [facility] HERE AT [facility]. SAMANTA SIGNED AND IMM SIGNED. WAITING INSURANCE AUTH AND THEN PATIENT CAN DC TO [facility]. CM TO FOLLOW AND ASSIST NEEDED. Pie Maker Machine: tSarla Ocampo DCPIA - Discharge Planning Initial Assessment Updated by [email or web address]: Starla Ocampo on 03/05/20 2:46 pm * Is the patient Alert and Oriented? Yes * PCP DARIAN * Pharmacy [facility] * Preadmission Environment Home Alone * ADLs Independent * Other Equipment NONE * Community resources currently utilized None * Additional services required to return to the preadmission environment? Yes * Can the patient safely return to the preadmission environment? Yes * Has this patient been hospitalized within the prior 30 days at any hospital? No Coverage Notice Reviewer: [id number] - Starla Ocampo Notice Issued Date-Time: 03/05/2020 14:47 Notice Type: IM Discharge Notice Notice Delivered To: Relationship to Patient: Site Supervising Technical Operator Name: Delivery Method: - Olivia Days: Prior Verbal Notification: Recipient Understood Notice: Recipient Signature: Med Rec Note Co-signed by Attending: Coverage Notice Comment: Reviewer: [id number] Clay Ocampo Notice Issued Date-Time: 03/05/2020 14:47 Notice Type: Patient Choice Letter Notice Delivered To: Patient Relationship to Patient: Site Supervising Technical Operator Name: Delivery Method: HAND - Hand Delivered Olivia Days: Prior Verbal Notification: Recipient Understood Notice: Yes Recipient Signature: Yes Med Rec Note Co-signed by Attending: Coverage Notice Comment: [facility] Patient Name: JEFFREY PERALES Page [id number] at 1450 All edits/amendments must be made on the electronic document DICTATION DATE: 03/05/201449 CASING CREW PUSHER: CHRISTIANO 03/05/20 1450 RPT#: [id number] DC DATE: STATUS: ADM IN [facility] [address] [place] [address] END OF REPORT
--- NOTE | 2020-03-05 15:18 | NUR ---
Rehab Note- Spoke with Nate with Jessica/Jon MEdical Management to verify faxed PreAuth request, stated that it would take 24hrs and that I would not hear anything from them, asked if she would please just verify that it had been recived yesterday- stated that it had been received and still under review with medical management. Will continue to await for determination at this time. Notified ALEXSANDER Cha of continued wait for determination at this time. Thank you for this referral! Carley Dominguez RN Clinical Liaison, [facility] Rehab
[2020-03-05 15:53] VITALS: BP 140/51
[2020-03-05 20:00] VITALS: BP 154/77
[2020-03-06 04:00] VITALS: BP 139/53
--- NOTE | 2020-03-06 04:04 | NUR ---
I have reviewed this patient and I concur with the Shift Assessment completed by the Licensed Practical Nurse today this shift.
[2020-03-06 05:47] LABS: BASOPHILS 0.1 % (0-2); EOSINOPHILS 1.4 % (0-7); HEMATOCRIT 37.6 % (42.0-54.0); HEMOGLOBIN 12.8 g/dL (13.5-17.5); IMMATURE GRANULOCYTES 0.1 % (0-5); LYMPHOCYTES 22.2 % (15-50); MCH 33.2 pg (26.0-34.0); MCV 97.4 fL (80.0-100.0); MEAN PLATELET VOLUME 10.8 fL (7.4-10.4); MONOCYTES 6.9 % (2-11); NEUTROPHILS 69.3 % (40-80); PLATELET COUNT 248 10x3/uL (130-400); RBC 3.86 10x6/uL (4.20-6.10); RDW 13.1 % (11.5-14.5); WBC 8.7 10x3/uL (4.8-10.8)
[2020-03-06 05:57] LABS: ALBUMIN 2.8 g/dL (3.4-5.0); ANION GAP 9.3 mmol/L (8-16); BILIRUBIN - TOTAL 0.33 mg/dL (0.2-1.3); CALCIUM 8.7 mg/dL (8.5-10.1); CARBON DIOXIDE 28.3 mmol/L (21.0-32.0); CREATININE - SERUM 1.4 mg/dL (0.6-1.3); POTASSIUM - SERUM 3.6 mmol/L (3.5-5.1); PROTEIN - SERUM 6.3 g/dL (6.4-8.2)
[2020-03-06 08:00] VITALS: BP 153/92
[2020-03-06 12:00] VITALS: BP 148/70
--- NOTE | 2020-03-06 12:49 | NUR ---
Rehab Note- SPoke with Lesly with Jessica/Jon stated that Auth still pending and that it is with an assigned nurse but unable to determine what nurse or a contact at this time. Continue to await determination at this time. Thank you for this referral! Carley Dominguez RN Clinical Liaison, [facility] Rehab
[2020-03-06] MEDS ORDERED: LIPITOR20 MG PO (14:08)
[2020-03-06] MEDS ORDERED: HYDROCODON-ACE1 EAC7 PO (14:08)
[2020-03-06] MEDS ORDERED: PLAVIX75 MG PO (14:08)
[2020-03-06] MEDS ORDERED: ASPIRIN81 MG PO (14:09)
[2020-03-06] MEDS ORDERED: PROTONIX40 MG PO (14:09)
--- NOTE | 2020-03-06 16:01 | NUR ---
Nutrition Follow-up: Patient awaiting acceptance to IP rehab. Active D/C orders. Patient seen by WIREWORKER today who recommended current diet. Diet: Regular Mech Soft PO intake: has not been being recorded. Last BM: none recorded since admit. Wt: 190# (03/03/20) Meds noted: HCTZ. Labs noted: Glu 109(H) Recommend continue PO diet per WIREWORKER. Encourage PO intake. Offer oral nutrition supplements if PO Intake <65%. Needs new weight. RD following.
--- NOTE | 2020-03-06 16:26 | NUR ---
Rehab Note- Received fax with Auth approval #[id number] form Jon/Jessica per Nahed Morales updated clinicals due on 03/13/2020 by noon. . Notified ALEXSANDER Cha of Auth approval can accept the patient today. THank you for this referral! Carley Dominguez RN Clinical Liaison, [facility] Rehab
[2020-03-06 16:59] VITALS: BP 156/67
--- NOTE | 2020-03-06 17:49 | NUR ---
1600: REVIEWED DISCHARGE INFORMATION AND EDUCATION WITH PT. RECEIVED WELL. NO ACUTE DISTRESS NOTED. DENIES PAIN AT THIS TIME. REMOVED PIV- FULLY INTACT, TOLERATED WELL.
--- NOTE | 2020-03-09 08:59 | MORECARE ---
CASE MANAGEMENT DISCHARGE SUMMARY PATIENT: JEFFREY PERALES UNIT: [id number] ADM DATE: 03/01/20 AGE: 65 : 55 SEX: M ROOM/BED: D.2227 AUTHOR: EVERARDODOC PHYSICIAN: REFERRING PHYSICIAN: SIENNA ROBERT MD DATE OF SERVICE: 03/09/20 Discharge Plan Patient Name: JEFFREY PERALES Facility: [facility]:[place] : 1955 Planned Disposition: Inpatient Rehab Anticipated Discharge Date: Discharge Date: 03/06/2020 Expected LOS: Initial Reviewer: [email or web address] Initial Review Date: 03/01/2020 Generated: 03/09/20 9:58 am Comments DCP- Discharge Planning Updated by [id number]: Starla Ocampo on 03/05/20 1:[address] Patient Name: JEFFREY PERALES Admission Status: ER Accout number: [id number] Admission Date: 03-01-2020 : 1955 Admission Diagnosis:NON-ST ELEVATION (NSTEMI) MYOCARDIAL INFARCTION Attending: SIENNA ROBERT Current LOS: 4 Anticipated DC Date: Planned Disposition: Inpatient Rehab [facility] Discharge Planning Comments: CM met with patient at bedside after explaining CM role and obtaining verbal consent. CM discussed availability / needs of home health, REHAB and medical equipment. PATIENT WOULD LIKE [facility] HERE AT [facility]. SAMANTA SIGNED AND IMM SIGNED. WAITING INSURANCE AUTH AND THEN PATIENT CAN DC TO [facility]. CM TO FOLLOW AND ASSIST NEEDED. Biogeographer: Starla Ocampo DCPIA - Discharge Planning Initial Assessment Updated by [id number]: Starla Ocampo on 03/05/20 2:46 pm * Is the patient Alert and Oriented? Yes * PCP DARIAN * Pharmacy [facility] * Preadmission Environment Home Alone * ADLs Independent * Other Equipment NONE * Community resources currently utilized None * Additional services required to return to the preadmission environment? Yes * Can the patient safely return to the preadmission environment? Yes * Has this patient been hospitalized within the prior 30 days at any hospital? No Coverage Notice Reviewer: [id number] - Starla Ocampo Notice Issued Date-Time: 03/05/2020 14:47 Notice Type: IM Discharge Notice Notice Delivered To: Relationship to Patient: Road Design Draftsperson Name: Delivery Method: - Olivia Days: Prior Verbal Notification: Recipient Understood Notice: Recipient Signature: Med Rec Note Co-signed by Attending: Coverage Notice Comment: Reviewer: [email or web address] Clay Ocampo Notice Issued Date-Time: 03/05/2020 14:47 Notice Type: Patient Choice Letter Notice Delivered To: Patient Relationship to Patient: Road Design Draftsperson Name: Delivery Method: HAND - Hand Delivered Olivia Days: Prior Verbal Notification: Recipient Understood Notice: Yes Recipient Signature: Yes Med Rec Note Co-signed by Attending: Coverage Notice Comment: [facility] Last DP export: 03/05/20 1:50 p Patient Name: JEFFREY PERALES Page [id number] at 0859 All edits/amendments must be made on the electronic document DICTATION DATE: 03/09/20857 DIRECTOR OF NATIONAL SALES: CHRISTIANO 03/09/2058 RPT#: [id number] DC DATE:03/06/20 STATUS: DIS IN [facility] [address] [place] [address] END OF REPORT
== END 2020-03-06 19:46 | DRG 248 ==
LOC: D.ER 05:39 → D.MS 07:59 → D.EDHOLD 07:59 → D.MS 03-02 16:57
PROVIDERS: Emergency Medicine; Family Medicine Adult Medicine; Internal Medicine Interventional Cardiology; ADMIT Family Medicine; ATTEND Family Medicine
PROC: B2151ZZ Fluoroscopy of Left Heart using Low Osmolar Contrast (ICD-10-PCS; 2020-03-01)
PROC: 4A023N7 Measurement of Cardiac Sampling and Pressure, Left Heart, Percutaneous Approach (ICD-10-PCS; 2020-03-01)
PROC: B2111ZZ Fluoroscopy of Multiple Coronary Arteries using Low Osmolar Contrast (ICD-10-PCS; principal; 2020-03-01 07:52)
PROC: 02703EZ Dilation of Coronary Artery, One Artery with Two Intraluminal Devices, Percutaneous Approach (ICD-10-PCS; 2020-03-01 07:52)
DX: I21.3 ST elevation (STEMI) myocardial infarction of unspecified site (principal); I63.9 Cerebral infarction, unspecified; N17.9 Acute kidney failure, unspecified; F14.90 Cocaine use, unspecified, uncomplicated; I10 Essential (primary) hypertension; G89.29 Other chronic pain; D72.829 Elevated white blood cell count, unspecified

== ENCOUNTER 2020-03-06 18:40 | Inpatient (IN) | payer MEDICARE, MEDICAID ==
[~2020-03-06] VITALS: Ht 172.7 cm; Wt 88.0 kg
[~2020-03-06 18:40] MED LIST: AMBIEN10 MG PO; ASPIRIN81 MG PO; CATAPRES0.2 MG PO; COZAAR25 MG; FUROSEMIDE40 MG PO; GABAPENTIN300 MG PO; HYDROCODON-ACE1 EA10 PO; HYDROCODON-ACE1 EAC7 PO; IBUPROFEN800 MG PO; K-TAB10 MEQ PO; LIPITOR20 MG PO; LOSARTAN-HCTZ1 EAC1 PO; METHOCARBAMOL750 MG PO; MOBIC7.5 MG PO; PLAVIX75 MG PO; POTASSIUM CHLO20 MEQ; PROTONIX40 MG PO
--- NOTE | 2020-03-06 18:50 | NUR ---
RECEIVED PT UP IN ROOM WALKING AROUND. EDUCATED PT ON CALLING FOR ASSISTANCE. PT STATES HE DOES NOT NEED ANY HELP AND WOULD PREFER TO GO TO RESTROOM ON HIS OWN. PT AMBULATES WITH STEADY GAIT AND BALANCE WALKING FORWARDS, DID HAVE SOME BALANCE ISSUES WALKING BACKWARDS. PT IS BEING ADMITTED TO IP REHAB UNDER DR. DALY FOR RECENT CVA. NO IV OR O2 NOTED. ALERT AND ORIENTED X4. ORIENTED TO UNIT, ROOM, BATHROOM AND FUNCTIONS OF REMOTE. NO CONCERNS VOICED. C/O 09/05 LOWER BACK PAIN REQUESTS PAIN MEDICATION. CALL LIGHT AND WATER WITHIN REACH. FALL PRECAUTIONS IN PLACE. CPOC
[2020-03-06 22:58] VITALS: BP 162/69; BMI 29.6
--- NOTE | 2020-03-07 | NUR ---
PT LYING IN BED ON RIGHT SIDE EYES CLOSED RESTING. RR EVEN AND UNLABORED. CALL LIGHT WITHIN REACH. WILL CONTINUE TO MONITOR
--- NOTE | 2020-03-07 02:01 | NUR ---
PT LYING IN BED ON LEFT SIDE EYES CLOSED RESTING. RR EVEN AND UNLABORED. CALL LIGHT WITHIN REACH. WILL CONTINUE TO MONITOR
--- NOTE | 2020-03-07 04:59 | NUR ---
PT AWAKE WALKING AROUND IN ROOM. PT STATES HE HAS ALREADY SHOWERED AND SHAVED. REQUESTS MOUTHWASH IN ORDER TO PERFORM ORAL HYGIENE. ADVISED PT THAT HE WILL BE EVALUATED BY OT FOR ADL PERFORMANCE AND MAY HAVE TO TAKE ANOTHER SHOWER IN ORDER TO DO SO. PT STATES HE HAS NO PROBLEM SHOWERING AGAIN TODAY. NO OTHER NEEDS VOICED. DENIES ANY PAIN. WILL CONTINUE TO MONITOR
[2020-03-07 06:58] LABS: BASOPHILS 0.2 % (0-2); EOSINOPHILS 1.4 % (0-7); HEMATOCRIT 39.8 % (42.0-54.0); HEMOGLOBIN 13.5 g/dL (13.5-17.5); IMMATURE GRANULOCYTES 0.2 % (0-5); LYMPHOCYTES 18.6 % (15-50); MCH 33.2 pg (26.0-34.0); MCHC 33.9 g/dL (31.0-37.0); MCV 97.8 fL (80.0-100.0); MEAN PLATELET VOLUME 10.6 fL (7.4-10.4); MONOCYTES 6.2 % (2-11); NEUTROPHILS 73.4 % (40-80); PLATELET COUNT 262 10x3/uL (130-400); RBC 4.07 10x6/uL (4.20-6.10); RDW 12.9 % (11.5-14.5); WBC 10.4 10x3/uL (4.8-10.8)
[2020-03-07 07:12] LABS: ANION GAP 10.8 mmol/L (8-16); CALCIUM 9.3 mg/dL (8.5-10.1); CARBON DIOXIDE 29.3 mmol/L (21.0-32.0); CREATININE - SERUM 1.5 mg/dL (0.6-1.3); POTASSIUM - SERUM 4.1 mmol/L (3.5-5.1)
[2020-03-07 08:00] VITALS: BP 105/47
--- NOTE | 2020-03-07 08:15 | NUR ---
WORKING WITH THERAPIST IN THERAPY GYM. DENIES NEEDS. STATES HEADACHE IS STILL PRESENT BUT IMPROVING. C/O DIFFICULTY RAISING LUE UP AT TIMES. COMPUTATIONAL MATHEMATICIAN TO HANDS EQUAL, FEET PUSH AND PULL EQUAL. DENIES NEED.
[2020-03-07 11:02] VITALS: Ht 172.7 cm; Wt 88.0 kg
[2020-03-07 20:00] VITALS: BP 148/74
--- NOTE | 2020-03-07 20:00 | NUR ---
BEDSIDE REPORT RECEIVED AND RESUMED CARE. VSS. PT DENIES PAIN OR NEEDS. BED IS LOW AND CALL LIGHT IS WITHIN REACH.
[2020-03-08 08:00] VITALS: BP 122/53
--- NOTE | 2020-03-08 13:13 | NUR ---
WALKS AROUND UNIT WITH WALKER. STATES HE STILL FEELS A LITTLE WEAK BUT IS GAINING STRENGTH. DENIES DIFFICULTY WALKING BUT IS UNSTEADY AT TIMES. IS ABLE TO MAKE NEEDS KNOWN.
--- NOTE | 2020-03-08 17:06 | NUR ---
SITTING ON SIDE OF BED IN HIS ROOM TALKING ON PHONE. DENIES NEEDS OR C/O. USES WALKER OFTEN FOR BALANCE. CALL LIGHT IN REACH, SIDE RAILS UP X2, BED IN LOWEST POSTION.
--- NOTE | 2020-03-08 20:00 | NUR ---
PT UP WALKING IN THE LYNCH USING HIS WALKER. HE DENIES PAIN OR NEEDS. VSS.
[2020-03-09 00:52] VITALS: BP 136/68
[2020-03-09 07:59] VITALS: BP 141/61
[2020-03-09 08:13] LABS: BASOPHILS 0.2 % (0-2); EOSINOPHILS 1.8 % (0-7); HEMATOCRIT 40.8 % (42.0-54.0); IMMATURE GRANULOCYTES 0.1 % (0-5); LYMPHOCYTES 20.1 % (15-50); MCH 33.3 pg (26.0-34.0); MCHC 34.3 g/dL (31.0-37.0); MCV 97.1 fL (80.0-100.0); MEAN PLATELET VOLUME 10.9 fL (7.4-10.4); MONOCYTES 6.3 % (2-11); NEUTROPHILS 71.5 % (40-80); RDW 12.9 % (11.5-14.5); WBC 10.2 10x3/uL (4.8-10.8)
[2020-03-09 08:15] LABS: CALCIUM 9.2 mg/dL (8.5-10.1); CARBON DIOXIDE 29.7 mmol/L (21.0-32.0); CREATININE - SERUM 1.5 mg/dL (0.6-1.3); POTASSIUM - SERUM 3.7 mmol/L (3.5-5.1)
[2020-03-09 08:16] LABS: PLATELET COUNT 333 10x3/uL (130-400)
--- NOTE | 2020-03-09 12:06 | NUR ---
SITTING ON SIDE OF BED IN ROOM FOR LUNCH. DENIES INCREASED PAIN OR ANY SOB. HAS BEEN USING WALKER FOR AMBULATION ASST. CALL LIGHT IN REACH
--- NOTE | 2020-03-09 14:41 | NUR ---
WORKING WITH THERAPY.
--- NOTE | 2020-03-09 16:04 | NUR ---
PATIENT ADMITTED TO REHAB FROM ACUTE FLOOR. HIS PCP IS DR. RIVERA. HE HAS NO DME AT HOME. DC PLANS ARE FOR PATIENT TO RETURN TO HIS HOME WITH FAMILY. WILL CONTINUE TO FOLLOW WITH PATIENT.
--- NOTE | 2020-03-09 19:35 | NUR ---
RECEIVED PT UP WALKING AROUND IN ROOM. ALERT AND ORIENTED X4. DENIES ANY NEEDS OR PAIN. NO ACUTE DISTRESS NOTED. BED/CHAIR ALARM WAIVER ON FILE. WILL CONTINUE TO MONITOR
[2020-03-09 21:25] VITALS: BP 147/66
--- NOTE | 2020-03-10 01:14 | NUR ---
PT LYING IN BED ON RIGHT SIDE EYES CLOSED RESTING. RR EVEN AND UNLABORED. CALL LIGHT WITHIN REACH. CPOC
--- NOTE | 2020-03-10 04:23 | NUR ---
PT WALKED UP TO NURSES STATION USING WALKER REQUESTING PAIN MEDICATION FOR 10/10 SHARP STABBING BACK PAIN. NORCO 10/325MG ADMINISTERED PER PT REQUEST AND ORDERS. NO OTHER NEEDS VOICED.
--- NOTE | 2020-03-10 08:00 | NUR ---
SHIFT ASSMT COMPLETED.
[2020-03-10 08:13] VITALS: BP 125/161
--- NOTE | 2020-03-10 10:28 | NUR ---
Nutrition Follow-up: Bedside swallow eval ordered yesterday. [facility] PO intake: states that he is eating 100% of meals Last BM: 03/10/20. Wt: 194# (03/07/20) Meds noted: k-dur, HCTZ, lasix. Labs noted: Glu 108(H), A1c 5.9% Recommend continue current diet or per GAMBLING FLOOR SUPERVISOR recommendations. RD following.
--- NOTE | 2020-03-10 12:00 | NUR ---
IN ROOM EATING LUNCH.
--- NOTE | 2020-03-10 16:00 | NUR ---
VISITING WITH FRIEND.
[2020-03-10 19:11] VITALS: BP 146/49
--- NOTE | 2020-03-10 20:52 | NUR ---
AWAKE AND ALERT. RESTING IN BED. UP AD ROC. RESPRIAITONS UNLABORED. NO DISTRESS NOTED.
--- NOTE | 2020-03-11 02:39 | NUR ---
RESTING QUIETLY WITH RESPIRATIONS UNLABORED. NO DISTRESS NOTED.
--- NOTE | 2020-03-11 06:27 | NUR ---
QUIET HOURS. NO ACUTE CHANGES IN CONDITION THIS SHIFT. GOT UP AND TOOK A SHOWER. NO DISTRESS NOTED.
[2020-03-11 07:53] VITALS: BP 136/52
--- NOTE | 2020-03-11 08:00 | NUR ---
SHIFT ASSMT COMPLETED.PLAN TO DC HOME TODAY.
[2020-03-11] MEDS ORDERED: HYDROCODON-ACE1 EA10 PO (08:50)
--- NOTE | 2020-03-11 08:51 | RHP ---
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 HISTORY OF PRESENT ILLNESS: The patient is a 65-year-old gentleman who presented to ED after waking with left-sided weakness, inability to ambulate, left facial droop and slurred speech. The patient stated he had some head and neck pain prior to this and taken a muscle relaxer. He stated that he has chronic back pain and recently underwent a nerve ablation to his lower back. KAYLIE Lee become involved in this when he got to the Emergency Room. He did admit to some cocaine use within 24 hours prior to presenting to the ED. He was found to have an acute ischemic vertebrobasilar brain stroke, acute left hemiparesis. The patient was seen and evaluated by neurology. He has got a history of hypertension. The patient was recently using some clonidine secondary to elevated pressure. He had an EKG performed, which showed some ST elevation in anterior precordial leads. He was taken to the cardiac cath lab technologist urgently, was found to have an obviously inferior artery infarct in his left anterior descending. He has been seen and followed throughout his stay by neurology. The patient is currently on telemetry with recent OR. We are monitoring closely for any neurological changes secondary to CVA, watching his I's and O's, his blood sugar. He is on anticoagulants at this time. We are needing medication adjustments per his blood pressure. He has got proximal muscle weakness, balance deficits, decreased activity tolerance, impaired mobility, decreased range of motion, decreased strength, gait disturbance, limited safety awareness and he is at risk for falls. He also needs cues for equipment. He fatigues easily. He has got inability to care for himself. These are all barriers to his discharge home. He lives at home alone, was independent with ADLs and mobility prior to this, using a single point cane. He would like to be able to return home at his prior level of functioning or better. 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 PAST MEDICAL HISTORY: Significant for CVA, weakness, dentures, glasses, hypertension, tobacco use, THC use, cocaine use, renal insufficiency, chronic back pain. PAST SURGICAL HISTORY: Includes nerve ablation. ALLERGIES: LISINOPRIL. CURRENT MEDICATIONS: Include hydrochlorothiazide 25 mg daily, on Cozaar 100 mg daily, potassium chloride 10 mEq daily, furosemide 40 mg daily, aspirin chewable 81 mg daily, Lipitor 20 mg daily, Plavix 75 mg daily, Protonix 40 mg daily, Catapres 0.2 mg b.i.d., Neurontin 300 mg t.i.d., Ambien 10 mg at bedtime p.r.n., MiraLax 17 grams in 8 ounces of water daily, [place] 5/325 one tab every 4 to 6 hours p.r.n. pain. HABITS: Does have a history of alcohol, tobacco, cocaine and THC use. HISTORY AND PHYSICAL [id number] JEFFREY PERALES FAMILY HISTORY: Noncontributory. SOCIAL HISTORY: The patient hopes to return back home and get back to his prior level of functioning. REVIEW OF SYSTEMS: GENERAL: Does complain of weakness especially on one side. HEENT: Denies cold, cough, or congestion. CARDIOVASCULAR: Denies any chest pain. PHYSICAL EXAMINATION: VITAL SIGNS: Stable, afebrile. GENERAL: A well-developed elderly gentleman, in no acute distress upon exam. HEENT: Normocephalic and atraumatic. Mucosa moist. NECK: Supple. No lymphadenopathy. LUNGS: Clear at this time with no wheezing or rales. HEART: Regular rate and rhythm. No murmurs, rubs or gallops. ABDOMEN: Soft, benign and nondistended. Positive bowel sounds x 4. EXTREMITIES: No clubbing, cyanosis or edema. NEUROLOGIC: He does have noted left-sided weakness consistent with a CVA. LABORATORY DATA: White count is 10.4, H&H of 13 and 39, and platelet count is noted to be 262. Sodium is 140, potassium 4.1, BUN and creatinine of 14 and 1.5 and blood sugar is noted to be 102. ASSESSMENT: This is a 65-year-old gentleman admitted to the rehab with a working diagnosis of cerebrovascular accident. The patient has potential to make improvement. We instituted the following multidisciplinary therapies including not limited to physical, occupational, respiratory, speech, nutritional services, prosthetics and orthotics. Given his complex medical condition and risks for more complications, rehabilitation services cannot be provided at a low level of care such as jail facility. PLAN: 1. Admit to [facility] for inpatient therapy to include the following disciplines; A. Physical therapy to improve gait, all transfer skills and bed mobility to a modified independent level. B. Occupational therapy to improve activities of daily living. C. Case management to help with discharge planning and placement options. D. Nutrition to assist with nutritional needs. E. Rehabilitation nursing to assist in monitoring the patient's underlying medical conditions and to assist with any type of bowel or bladder management. 2. The patient's current medication and medical care will be continued. 3. Placed on standard fall precautions. 4. The patient's estimated length of stay is approximately 7-10 days. 5. We will discuss this patient during care team staff meeting this week. We will continue on appropriate medications. We will continue to watch telemetry and I am going to see again in the a.m. TRANSINT:[id number] Voice Confirmation ID: [id number] DOCUMENT ID: [id number] ARIA notes whether there has been none or any medical/functional HISTORY AND PHYSICAL [id number] JEFFREY PERALES change since admission: - No change since prescreen. ARIA attests patient continues to be appropriate for IRF: - Continues to be appropriate. NETTA DALY MD at 0851 CC: [id number] DICTATION DATE: 03/07/20 1235 [employer] OUTSEAMER: 03/07/20 1414 ADM IN [facility] [address] [place] [address]
--- NOTE | 2020-03-11 11:28 | NUR ---
PATIENT DISCHARGING HOME TODAY. PTIENT DECLINES HOME HEALTH AT THIS TIME. [facility] HAS DELIVERED A ROLLING WALKER TO PATIENT. PATIENT WILL CALL HIS PCP OFFICE IGNACIO RIVERA APRN FOR AN APPOINTMENT.DR. SARAI CURRAN 04/01/20 @ 10:15, DR. FLORES 03/16/20 @ 4:00. SAMANTA SIGNED, IMM SERVED AND EXPLAINED, ONE GIVEN TO PATIENT AND ONE FILED IN CHART.DISCHARGE INSTRUCTIONS FAXED TO PCP, TO [facility] FAX TO , AUTH. # [id number], AND REVIEWED WITH PATIENT.
--- NOTE | 2020-03-11 12:00 | NUR ---
REVIEWED MEDS AND INSTRUCTIONS.[facility] CALLED TO PHARMACY.RW DELIVERED TO ROOM FROM [facility].APPOINTMENTS FOR F/U GIVEN.TAKEN TO VEHICLE WITH RW AND DC'D IN STABLE CONDITION.
--- NOTE | 2020-03-11 13:47 | NUR ---
CLINICAL UPDATES AND DC CLINICALS FAXED TO [facility] , AUTH. # [id number]
--- NOTE | 2020-03-11 14:47 | NUR ---
SCRIPT FOR OUTPATIENT THERAPY GIVEN TO PATIENT .
== END 2020-03-11 12:15 | disposition home or self-care (01) | DRG 56 ==
LOC: D.REHAB 18:40
PROVIDERS: ADMIT Emergency Medicine; ATTEND Emergency Medicine
DX: I69.354 Hemiplegia and hemiparesis following cerebral infarction affecting left non-dominant side (principal); I21.3 ST elevation (STEMI) myocardial infarction of unspecified site; I50.20 Unspecified systolic (congestive) heart failure; F14.90 Cocaine use, unspecified, uncomplicated; F12.90 Cannabis use, unspecified, uncomplicated; R26.9 Unspecified abnormalities of gait and mobility; R53.83 Other fatigue; G89.29 Other chronic pain; I11.0 Hypertensive heart disease with heart failure